=== PATIENT | male | born 2000 | race Caucasian/White ===

== ENCOUNTER 2020-06-11 16:57 | Emergency (ER) | payer MEDICAID, SELFPAY ==
--- NOTE | 2020-06-11 | XR_ITS ---
EXAMINATION: XR HAND, RIGHT CLINICAL INFORMATION: Dog bite COMPARISON: None TECHNIQUE: PA, lateral, and oblique views of the right hand. FINDINGS: The bones are normal. No fracture. Alignment is anatomic. Joint spaces are maintained. No erosions. There is mild soft tissue swelling around the PIP joint of the third digit. Just lateral to the base of the proximal phalanx of the third digit, a vague density is seen of uncertain significance. This could even be related to an overlying bandage if such is present. XR/XR hand RT min 3V IMPRESSION: No bony abnormality is seen. Soft tissue swelling and vague density of uncertain significance. Please correlate with the presence of a bandage.
[2020-06-11 19:05] VITALS: BP 122/68; PULSE 88; RESP 16; TEMP 36.6; O2SAT 100; BMI 45.4
--- NOTE | 2020-06-11 20:04 | ED.ANIMALBIT ---
HPI - Animal Bite General Chief Complaint: Animal Bite Stated Complaint: dog bite Time Seen by Provider: 06/11/20 19:20 History of Present Illness HPI narrative: Patient complains of dog bite to right hand fingers index middle and ring fingers by his own dog that was in a dog fight with another of his dogs Both dogs are up-to-date on rabies immunizations and both can be observed as they were both his pats He denies fever chills no numbness no weakness This happened about 12 hours ago and pain is mild Related Data Previous Rx's Medication Instructions Recorded amoxicillin-pot clavulanate 1 tab PO Q12H 7 Days #14 tab 06/11/20 [Augmentin] Allergies Allergy/AdvReac Type Severity Reaction Status Date / Time cat dander [CATS] Allergy Unknown UNKNOWN Unverified 04/20/20 16:46 Review of Systems Review of Systems: There is no numbness no weakness no tingling no fever no chills, no other injury, no discharge from the wound no other rash Yes all other systems are reviewed and are negative PMFSH Past Medical History Source: nursing notes reviewed Medical History (Updated 06/11/20 @ 20:22 by MITCHEL Brown) Asthma Social History Social History Smoked in Last 30 Days: No Use of substances other than those prescribed or required for medical reasons: No Advance Directives: No Advance Directives Information Provided: Yes Physical Exam Vital Signs: Vital Signs: Last Vital Signs Temp 97.9 F 06/11/20 19:05 Pulse 88 06/11/20 19:05 Resp 16 06/11/20 19:05 BP 122/68 06/11/20 19:05 Pulse Ox 100 06/11/20 19:05 Body Mass Index 45.4 Patient is comfortable, no acute distress, A&O x3 Neck is supple Respiratory no respiratory distress The right hand shows bite small of the right 2nd 3rd and 4th fingers affecting PIP and D IP, tendon function is normal, there is full range of motion in the 3 fingers, there is no obvious redness warmth or discharge, there is no lymphangitis, there is mild swelling to the right 3rd middle phalanx but again there is full range of motion with no evidence of a tendon injury, the several bite small on fingers do not do not need suture repair, and fingers are neurovascular intact Other extremities are normal Neuro is no focal deficit with motor and sensation intact Course Course Course Narrative: Wounds to fingers are irrigated and prophylactic antibiotic is started, no evidence of infection now Discharge Plan Discharge Clinical Impression: Dog bite of finger Qualifiers: Encounter type: initial encounter Qualified Code(s): S61.259A - Open bite of unspecified finger without damage to nail, initial encounter Patient Disposition: Home, Self-Care Additional Instructions: We started preventive antibiotics and tetanus shot Return to ER in 2 days for wound check Return any time for redness, worse pain and swelling, any discharge from the wound, any spreading redness, red stripe up the arm, any sign of infection any worse condition or any concerns Prescriptions: New amoxicillin-pot clavulanate [Augmentin] 875-125 mg tablet 1 tab PO Q12H 7 Days Qty: 14 RF: 0
[2020-06-11] MEDS: Amoxicillin/Potassium Clav 875 MG TABLET PO (20:22)
[2020-06-11] MEDS: Ibuprofen 600 MG TABLET PO (20:22)
== END 2020-06-11 20:41 | disposition home or self-care (01) ==
PROVIDERS: Emergency Provider Emergency Medicine
DX: S60.472A Other superficial bite of right middle finger, initial encounter (principal); S60.470A Other superficial bite of right index finger, initial encounter; M79.641 Pain in right hand; W54.0XXA Bitten by dog, initial encounter; Y93.9 Activity, unspecified; Y92.9 Unspecified place or not applicable; Y99.9 Unspecified external cause status; Z23 Encounter for immunization
CPT/HCPCS: 73130; 90471; 90715; 99284

== ENCOUNTER 2020-10-12 16:00 | Outpatient (RCR) | payer MEDICAID, SELFPAY | END 2020-10-17 11:04 | disposition home or self-care (01) | LOC: HO.PT 16:00 | PROVIDERS: PCP Nurse Practitioner Family; Visit Provider Nurse Practitioner Family | DX: M62.838 Other muscle spasm (principal) | CPT/HCPCS: 97110; 97112; 97161; 97530 ==